=== PATIENT | male | born 1975 | race Two or more races ===

== ENCOUNTER → 2020-06-03 06:47 | Outpatient (CLI) | payer BC | END | disposition home or self-care (01) | LOC: LAB 06:47 | PROVIDERS: ATTEND General Practice | DX: I11.9 Hypertensive heart disease without heart failure (principal); E03.9 Hypothyroidism, unspecified; N40.0 Benign prostatic hyperplasia without lower urinary tract symptoms; Z12.11 Encounter for screening for malignant neoplasm of colon; E78.2 Mixed hyperlipidemia; D64.9 Anemia, unspecified; E55.9 Vitamin D deficiency, unspecified ==

== ENCOUNTER 2020-06-21 08:11 | Outpatient (CLI) | payer BC | END 2020-06-21 14:49 | disposition home or self-care (01) | LOC: TOM 08:11 | PROVIDERS: ATTEND General Practice | DX: R10.9 Unspecified abdominal pain (principal); R10.2 Pelvic and perineal pain; R19.09 Other intra-abdominal and pelvic swelling, mass and lump ==

== ENCOUNTER 2020-09-24 08:09 | Outpatient (CLI) | payer BC | END 2020-09-24 08:18 | disposition home or self-care (01) | LOC: TOM 08:09 | PROVIDERS: ATTEND Urology | DX: R10.84 Generalized abdominal pain (principal) ==

== ENCOUNTER 2022-03-05 07:44 | Outpatient (CLI) | payer BC | END 2022-03-05 07:56 | disposition home or self-care (01) | LOC: LAB 07:44 | DX: E78.00 Pure hypercholesterolemia, unspecified (principal); I11.9 Hypertensive heart disease without heart failure ==

== ENCOUNTER 2022-03-09 07:42 | Outpatient (CLI) | payer BC | END 2022-03-09 07:58 | disposition home or self-care (01) | LOC: TOM 07:42 | PROVIDERS: ATTEND General Practice | DX: K76.0 Fatty (change of) liver, not elsewhere classified (principal); R10.9 Unspecified abdominal pain; K57.30 Diverticulosis of large intestine without perforation or abscess without bleeding; K76.89 Other specified diseases of liver ==

== ENCOUNTER → 2022-04-10 08:05 | Outpatient (CLI) | payer BC | END | disposition home or self-care (01) | LOC: LAB 08:05 | PROVIDERS: ATTEND Internal Medicine Gastroenterology | DX: R74.8 Abnormal levels of other serum enzymes (principal); K76.89 Other specified diseases of liver ==